=== PATIENT | male | born 1990 | race Caucasian/White ===

== ENCOUNTER 2023-09-15 08:52 | Emergency (ER) | payer SELFPAY ==
[2023-09-15 08:58] VITALS: BP 144/98; PULSE 78; RESP 20; TEMP 36.4; O2SAT 100; BMI 23.4
--- NOTE | 2023-09-15 09:13 | CT_ITS ---
[address] [address] Patient Name: RYAN PECK MRN: [id number] date: 1990 Sex: M Assigned Patient Location: ER Current Patient Location: ER Accession/Order Number: [id number] Exam Date: 09/15/2023 09:18 Report Date: 09/15/2023 09:40 At the request of: KENYA HURT Procedure: CT abdomen pelvis wo con EXAMINATION: CT abdomen pelvis wo con HISTORY: left flank pain; kidney stone history COMPARISON: CT abdomen pelvis 11/19/2021 TECHNIQUE: Axial, Coronal, and Sagittal images were obtained without and/or with IV contrast as indicated by examination type. Dose reduction techniques were achieved by using automated exposure control and/or adjustment of mA and/or kV according to patient size and/or use of iterative reconstruction technique. FINDINGS: LUNG BASES: No visible pulmonary or pleural disease. LIVER: No enlargement, atrophy, suspicious density, or significant focal lesion. BILIARY: No dilatation or calcification. PANCREAS: No lesion, fluid collection, or abnormal duct dilatation. SPLEEN: No enlargement or focal lesion. ADRENALS: No mass or enlargement. KIDNEYS: Mild left hydronephrosis secondary to an obstructing 6 x 5 x 4 mm stone within the proximal ureter. Several small nonobstructing stones within kidneys bilaterally. BOWEL/MESENTERY: No visible mass, obstruction, or bowel wall thickening. AORTA/VASCULAR: No aneurysm or dissection. RETROPERITONEUM: No mass or adenopathy. LYMPH NODES: No adenopathy. URINARY BLADDER: Mild circumferential wall thickening of urinary bladder, 6 mm. No stones or mass. PELVIC ORGANS: No visible mass. Pelvic organs appropriate for patient age. ABDOMINAL WALL: No mass or hernia. BONES: No bony lesion or fracture. OTHER: Negative. CT/CT abdomen pelvis wo con IMPRESSION: 1. Mild left hydronephrosis secondary to an obstructing 6 x 5 x 4 mm stone within the proximal ureter. 2. Bilateral nonobstructing nephrolithiasis. 3. Mild wall thickening of urinary bladder; incomplete distention versus cystitis. Electronically authenticated by: FLAKO WALDEN Date: 09/15/2023 09:40
[2023-09-15 09:20] LABS: Basophils Absolute Auto 0.1 10^3/uL (0.0-0.1); Basophils Percent Auto 0.8 % (0.2-2.0); Eosinophils Absolute Auto 0.2 10^3/uL (0.0-0.7); Eosinophils Percent Auto 1.6 % (0.9-7.0); Hematocrit 47.2 % (42.0-54.0); Hemoglobin 15.4 g/dL (14.0-18.0); Immature Granulocytes Abs Auto 0.03 10^3/uL (0.00-0.03); Immature Granulocytes Pct Auto 0.3 % (0.0-0.5); Lymphocytes Absolute Auto 2.1 10^3/uL (1.2-3.8); Lymphocytes Percent Auto 17.3 % (20.5-60.0); Mean Corpuscular HGB Conc 32.6 g/dL (29.9-35.2); Mean Corpuscular Hemoglobin 28.4 pg (25.9-34.0); Mean Corpuscular Volume 87.1 fL (80.0-94.0); Mean Platelet Volume 10.1 fL (9.5-13.5); Monocytes Percent Auto 8.2 % (1.7-12.0); Neutrophils Absolute Auto 8.6 10^3/uL (1.4-6.5); Neutrophils Percent Auto 71.8 % (43.0-75.0); Platelet Count 288 10^3/uL (150-450); Red Blood Count 5.42 10^6/uL (4.70-6.10); Red Cell Distribution Width 12.4 % (11.0-15.0); White Blood Count 11.9 10^3/uL (4.0-11.0)
[2023-09-15] MEDS: ONDANSETRON PF 4 MG/2 ML VIAL IV (09:26)
[2023-09-15] MEDS: KETOROLAC TROMETHAMINE 30 MG/ML VIAL IVP (09:26)
[2023-09-15] MEDS: 0.9 % SODIUM CHLORIDE 1,000 ML 999 ML IV (09:26)
[2023-09-15 09:36] LABS: Alanine Aminotransferase 39 U/L (16-63); Albumin Globulin Ratio 1.1; Albumin Level 3.9 g/dL (3.4-5.0); Alkaline Phosphatase 69 U/L (46-116); Anion Gap 13.5; Aspartate Amino Transferase 18 U/L (15-37); BUN Creatinine Ratio 7.7; Bilirubin Total 0.5 mg/dL (0.2-1.0); Calcium 9.3 mg/dL (8.5-10.1); Carbon Dioxide 27.6 mmol/L (21.0-32.0); Chloride 104 mmol/L (98-107); Estimated GFR (African America >60 (>=60); Estimated GFR (Non-African Ame >60 (>=60); Globulin 3.4 g/dL; Glucose 101 mg/dL (74-106); Potassium 4.1 mmol/L (3.5-5.1); Sodium 141 mmol/L (136-145); Total Protein 7.3 g/dL (6.4-8.2)
--- NOTE | 2023-09-15 09:46 | ED_ITS ---
HPI - Abdominal Pain General Chief Complaint: Abdominal Pain Stated Complaint: FLANK PAIN Time Seen by Provider: 09/15/23 09:03 Source: patient Mode of arrival: walk-in Limitations: no limitations History of Present Illness HPI narrative: Patient developed left flank pain on 09/12 but it went away within an hour. Pain returned 09/13 and again on 09/14 and then was constant since last night. He had worse pain early this morning and woke from sleeping with nausea and vomited from the pain . No urinary symptoms but he had kidney stone about 1-2 years ago that had similar symptoms. He passed that stone and never got urological follow up. No fever or chills. No skin rash. Pain now along the left abdomen and radiates to left flank - moderate to severe Related Data Previous Rx's Medication Instructions Recorded ketorolac 10 mg tablet 10 mg PO Q8H PRN pain #14 tabs 09/15/23 ondansetron 4 mg disintegrating 4 mg PO Q6H PRN nausea and 09/15/23 tablet vomiting #20 tabs tamsulosin 0.4 mg capsule (Flomax) 0.4 mg PO DAILY PRN kidney stone 09/15/23 pain #14 caps Allergies Allergy/AdvReac Type Severity Reaction Status Date / Time No Known Drug Allergies Allergy Verified 09/15/23 09:01 [facility] Social History Smoking status: Heavy tobacco smoker Exam Narrative Exam Narrative: Nurses notes and vital signs reviewed and patient is not hypoxic. afebrile General: uncomfortable. Skin: Warm, dry, no pallor noted. No rash. Eye: Pupils are equal, round and EOMI. No scleral icterus. Ears, Nose, Mouth, and Throat: Oral mucosa is moist Cardiovascular: Regular Rate and Rhythm without murmur, gallop or rub. Respiratory: No accessory muscle use or respiratory distress. Lungs are clear to auscultation, no wheezing, rales or rhonchi Back: Left CVA tenderness Musculoskeletal: normal ROM GI: Abdomen is soft, non-distended. Normal bowel sounds. No masses appreciated. Left sided tenderness to palpation. No rebound, guarding, or rigidity noted. Neurological: A&O x4. No cranial nerve dysfunction observed. No truncal ataxia. Moves all extremities. Sensation intact. Psychiatric: Cooperative and interactive. Normal mood and affect. Constitutional Vital Signs, click to edit/add: Last Vital Signs Temp 97.5 F L 09/15/23 08:58 Pulse 78 09/15/23 08:58 Resp 20 09/15/23 08:58 BP 144/98 H 09/15/23 08:58 Pulse Ox 100 09/15/23 08:58 O2 Del Method Room Air 09/15/23 08:58 Course Vital Signs Vital signs: Vital Signs Temperature 97.5 F L 09/15/23 08:58 Pulse Rate 78 09/15/23 08:58 Respiratory Rate 20 09/15/23 08:58 Blood Pressure 144/98 H 09/15/23 08:58 Pulse Oximetry 100 09/15/23 08:58 Oxygen Delivery Method Room Air 09/15/23 08:58 Temperature 97.5 F L 09/15/23 08:58 Pulse Rate 78 09/15/23 08:58 Respiratory Rate 20 09/15/23 08:58 Blood Pressure 144/98 H 09/15/23 08:58 Pulse Oximetry 100 09/15/23 08:58 Oxygen Delivery Method Room Air 09/15/23 08:58 MDM - Abdominal Pain MDM Narrative Medical decision making narrative: Patient presents with symptoms and physical exam findings consistent with ureteral stone. Peripheral IV established and blood drawn and sent for testing. Urine obtained and sent for testing as well. The patient was ordered to receive normal saline IV fluid, IV Zofran and IV Toradol. White blood cell count elevated 11.9, no left shift noted. CMP is notable for normal renal function, normal electrolytes negative LFTs, normal total bilirubin. CT scan, according to the radiologist, revealed 6 x 5 x 4 mm stone within the proximal left ureter with associated mild left hydronephrosis. The patient was informed of results, discharged home with prescriptions for Flomax, Zofran, Toradol and [place] for pain. He was given referral information for local urology group. He was also given a strainer. Emergency department return if he worsens Lab Data Attestation: I reviewed the patient's lab results. Labs: Lab Results 09/15/23 Range/Units 09:08 WBC 11.9 H (4.0-11.0) 10^3/uL RBC 5.42 (4.70-6.10) 10^6/uL Hgb 15.4 (14.0-18.0) g/dL Hct 47.2 (42.0-54.0) % MCV 87.1 (80.0-94.0) fL MCH 28.4 (25.9-34.0) pg MCHC 32.6 (29.9-35.2) g/dL RDW 12.4 (11.0-15.0) % Plt Count 288 (150-450) 10^3/uL MPV 10.1 (9.5-13.5) fL Neut % (Auto) 71.8 (43.0-75.0) % Lymph % (Auto) 17.3 L (20.5-60.0) % [place] % (Auto) 8.2 (1.7-12.0) % Eos % (Auto) 1.6 (0.9-7.0) % Baso % (Auto) 0.8 (0.2-2.0) % Neut # (Auto) 8.6 H (1.4-6.5) 10^3/uL Lymph # (Auto) 2.1 (1.2-3.8) 10^3/uL [place] # (Auto) 1.0 H (0.3-0.8) 10^3/uL Eos # (Auto) 0.2 (0.0-0.7) 10^3/uL Baso # (Auto) 0.1 (0.0-0.1) 10^3/uL Abs Immat Gran (auto) 0.03 (0.00-0.03) 10^3/uL Imm/Tot Granulo (auto) 0.3 (0.0-0.5) % Sodium 141 (136-145) mmol/L Potassium 4.1 (3.5-5.1) mmol/L Chloride 104 (98-107) mmol/L Carbon Dioxide 27.6 (21.0-32.0) mmol/L Anion Gap 13.5 BUN 10.0 (7.0-18.0) mg/dL Creatinine 1.30 (0.70-1.30) mg/dL Est GFR ( Amer) >60 (>=60) Est GFR (Non-Af Amer) >60 (>=60) BUN/Creatinine Ratio 7.7 Glucose 101 (74-106) mg/dL Calcium 9.3 (8.5-10.1) mg/dL Total Bilirubin 0.5 (0.2-1.0) mg/dL AST 18 (15-37) U/L ALT 39 (16-63) U/L Alkaline Phosphatase 69 (46-116) U/L Total Protein 7.3 (6.4-8.2) g/dL Albumin 3.9 (3.4-5.0) g/dL Globulin 3.4 g/dL Albumin/Globulin Ratio 1.[address] scan - abdomen: Radiologist's impression: Patient Name: RYAN PECK MRN: [facility]:[id number] date: 1990 Sex: M Assigned Patient Location: ER Current Patient Location: ER Accession/Order Number: [id number] Exam Date: 09/15/2023 09:18 Report Date: 09/15/2023 09:40 At the request of: KENYA HURT Procedure: CT abdomen pelvis wo con EXAMINATION: CT abdomen pelvis wo con HISTORY: left flank pain; kidney stone history COMPARISON: CT abdomen pelvis 11/19/2021 TECHNIQUE: Axial, Coronal, and Sagittal images were obtained without and/or with IV contrast as indicated by examination type. Dose reduction techniques were achieved by using automated exposure control and/or adjustment of mA and/or kV according to patient size and/or use of iterative reconstruction technique. FINDINGS: LUNG BASES: No visible pulmonary or pleural disease. LIVER: No enlargement, atrophy, suspicious density, or significant focal lesion. BILIARY: No dilatation or calcification. PANCREAS: No lesion, fluid collection, or abnormal duct dilatation. SPLEEN: No enlargement or focal lesion. ADRENALS: No mass or enlargement. KIDNEYS: Mild left hydronephrosis secondary to an obstructing 6 x 5 x 4 mm stone within the proximal ureter. Several small nonobstructing stones within kidneys bilaterally. BOWEL/MESENTERY: No visible mass, obstruction, or bowel wall thickening. AORTA/VASCULAR: No aneurysm or dissection. RETROPERITONEUM: No mass or adenopathy. LYMPH NODES: No adenopathy. URINARY BLADDER: Mild circumferential wall thickening of urinary bladder, 6 mm. No stones or mass. PELVIC ORGANS: No visible mass. Pelvic organs appropriate for patient age. ABDOMINAL WALL: No mass or hernia. BONES: No bony lesion or fracture. OTHER: Negative. IMPRESSION: 1. Mild left hydronephrosis secondary to an obstructing 6 x 5 x 4 mm stone within the proximal ureter. 2. Bilateral nonobstructing nephrolithiasis. 3. Mild wall thickening of urinary bladder; incomplete distention versus cystitis. Electronically authenticated by: FLAKO WALDEN Date: 09/15/2023 09:40 Discharge Plan Discharge Chief Complaint: Abdominal Pain Clinical Impression: Renal colic, Left ureteral stone Patient Disposition: Home, Self-Care Time of Disposition Decision: 09:54 Prescriptions / Home Meds: New ondansetron 4 mg tablet,disintegrating 4 mg PO Q6H PRN (Reason: nausea and vomiting) Qty: 20 0RF tamsulosin [Flomax] 0.4 mg capsule 0.4 mg PO DAILY PRN (Reason: kidney stone pain) Qty: 14 0RF ketorolac 10 mg tablet 10 mg PO Q8H PRN (Reason: pain) Qty: 14 0RF Instructions: Renal Colic (ED), Ureteral Stones (ED) Stand Alone Forms: Portal Instructions Referrals: Daron Aguilar MD [Physician] - As soon as possible
== END 2023-09-15 10:20 | disposition home or self-care (01) ==
PROVIDERS: Emergency Provider Emergency Medicine; PCP Family Medicine
DX: N13.2 Hydronephrosis with renal and ureteral calculous obstruction (principal); Z87.442 Personal history of urinary calculi; F17.200 Nicotine dependence, unspecified, uncomplicated
CPT/HCPCS: 36415; 74176; 80053; 85025; 96361; 96374; 96375; 99284